=== PATIENT | male | born 1985 | race Caucasian/White ===

== ENCOUNTER → 2017-12-20 | Outpatient (CLI) | payer OTHER ==
[~2017-12-20] MED LIST: TEST100V2 INJ
== END ==
LOC: STAR 09:01
PROVIDERS: ATTEND Surgery
DX: Z02.9 Encounter for administrative examinations, unspecified (principal)

== ENCOUNTER 2017-12-25 09:03 | Day surgery (SDC) | payer OTHER ==
[~2017-12-25] VITALS: Ht 182.9 cm; Wt 116.0 kg
[~2017-12-25 09:03] MED LIST changes: +BUPIVACAINE/PF 0.5% ONE; +EPINEPHRINE 1 MG/ML, 1ML ONE
[2017-12-25] MEDS ORDERED: LACTATED RINGERS 1,000 ML IV SCH (09:30)
[2017-12-25 09:34] VITALS: BP 150/100
[2017-12-25] MEDS ORDERED: MIDAZOLAM 1 MG/ML, 2ML ONE (11:24)
[2017-12-25] MEDS ORDERED: FENTANYL PF 250 MCG/5ML ONE (11:25)
[2017-12-25] MEDS ORDERED: CEFAZOLIN 1,000 MG ONE (11:34)
[2017-12-25] MEDS ORDERED: LABETALOL 5MG/ML 40ML VIAL ONE (11:34)
[2017-12-25] MEDS ORDERED: KETOROLAC 30 MG/1 ML ONE (12:10)
[2017-12-25] MEDS ORDERED: DEXAMETHASONE 4 MG/ML, 1ML ONE (12:10)
[2017-12-25] MEDS ORDERED: ONDANSETRON 2MG/ML, 2ML ONE (12:10)
[2017-12-25] MEDS ORDERED: PROPOFOL 10 MG/ML, 20ML ONE (12:10)
[2017-12-25] MEDS ORDERED: MEPERIDINE/PF 25MG/0.5ML IVPush PRN (13:00)
[2017-12-25] MEDS ORDERED: morphine SULFATE 10 MG/ML, 1ML IV PRN (13:00)
[2017-12-25] MEDS ORDERED: LABETALOL 5MG/ML, 20ML IV PRN (13:00)
[2017-12-25] MEDS ORDERED: ONDANSETRON 2MG/ML, 2ML IVPush PRN (13:00)
[2017-12-25] MEDS ORDERED: PROMETHAZINE 25 MG/ML, 1ML IV PRN (13:00)
[2017-12-25] MEDS ORDERED: ACETAMINOPHEN 325 MG TABLET PO PRN (13:00)
[2017-12-25] MEDS ORDERED: PROMETHAZINE 12.5 MG SUPP PR PRN (13:00)
[2017-12-25] MEDS ORDERED: MIDAZOLAM 1 MG/ML, 2ML IV PRN (13:00)
[2017-12-25] MEDS ORDERED: OXYcodone 5 MG/5 ML ORAL.SOL UDC PO PRN (13:00)
[2017-12-25] MEDS ORDERED: FENTANYL PF 100 MCG/2ML IV PRN (13:00)
== END 2017-12-25 14:45 ==
LOC: OUT 09:03
PROVIDERS: ATTEND Surgery
DX: K43.6 Other and unspecified ventral hernia with obstruction, without gangrene (principal); F17.200 Nicotine dependence, unspecified, uncomplicated; F31.9 Bipolar disorder, unspecified; Z71.6 Tobacco abuse counseling
CPT/HCPCS: 49560; 49568; C1781; J0171; J0690; J1100; J1885; J2250; J2405; J2704; J3010; J3490; J7120

== ENCOUNTER 2019-03-17 00:37 | Emergency (ER) | payer OTHER ==
[~2019-03-17] VITALS: Ht 182.9 cm; Wt 110.0 kg
[~2019-03-17 00:37] MED LIST changes: -BUPIVACAINE/PF 0.5% ONE; -EPINEPHRINE 1 MG/ML, 1ML ONE
--- NOTE | 2019-03-17 00:50 | NUR ---
FIRST CONTACT WITH PT. PT HERE STATING THAT HE WAS IN THE [facility] AND BELIEVES THAT HE MAY HAVE TORN HIS BICEP, THIS OCCURRED 1899. PT'S AOX4. RESPS EVEN AND UNLABORED. AWAITING EDMD ASSESSMENT AT THIS TIME.
--- NOTE | 2019-03-17 01:56 | NUR ---
Assist RN: sling applied. patient discharged with instruction. verbalized understanding.
[2019-03-17 01:57] VITALS: BP 141/89
== END 2019-03-17 02:00 | disposition home or self-care (01) ==
LOC: ED 01:40
DX: M79.622 Pain in left upper arm (principal); X58.XXXA Exposure to other specified factors, initial encounter; Y93.89 Activity, other specified; Y92.89 Other specified places as the place of occurrence of the external cause; Y99.8 Other external cause status
CPT/HCPCS: 99282

== ENCOUNTER 2019-05-15 09:35 | Day surgery (SDC) | payer OTHER ==
[~2019-05-15] VITALS: Ht 182.9 cm; Wt 106.9 kg
[2019-05-15 10:41] VITALS: BP 133/88
== END 2019-05-15 15:45 | disposition home or self-care (01) ==
LOC: OUT 09:35
PROVIDERS: ATTEND Orthopaedic Surgery
DX: S46.211A Strain of muscle, fascia and tendon of other parts of biceps, right arm, initial encounter (principal); X58.XXXA Exposure to other specified factors, initial encounter; Y93.89 Activity, other specified; Y92.89 Other specified places as the place of occurrence of the external cause; Y99.8 Other external cause status
CPT/HCPCS: 24342; 64415; 73070; 76000; J0690; J1100; J1885; J2175; J2250; J2405; J2704; J3010; J3490; J7120